=== PATIENT | male | born 1960 | race Caucasian/White ===

== ENCOUNTER 2019-03-27 12:45 | Emergency (ER) | payer MEDICARE, OTHER ==
[~2019-03-27] VITALS: Ht 177.8 cm; Wt 70.8 kg
[2019-03-27 14:01] LABS: Basophils % (auto) 0.7 % (0.0-2.0); Eosinophils # (auto) 0.3 uL; Lymphocytes # (auto) 0.9 uL; Mean Corpuscular Hgb Conc. 34.4 g/dL (32.0-36.0); Monocytes # (auto) 0.5 uL
[2019-03-27 14:03] LABS: Basophils # (auto) 0.1 uL; Eosinophils % (auto) 4.4 % (0.0-7.0); Hematocrit 33.7 % (41.0-53.0); Hemoglobin 11.6 g/dL (13.5-17.5); Lymphocytes % (auto) 12.3 % (10.0-50.0); Mean Corpuscular Hemoglobin 34.7 pg (28.0-32.0); Mean Corpuscular Volume 100.7 fL (80.0-100.0); Monocytes % (auto) 7.3 % (0.0-12.0); Neutrophils # (auto) 5.3 uL; Neutrophils % (auto) 75.3 % (37.0-80.0); Platelet Count (auto) 150 10^3/uL (140-450); Red Blood Cells 3.35 10^6/uL (4.5-5.90); Red Cell Distribution Width 13.7 % (11.8-14.3); White Blood Cell 7.1 10^3/uL (4.4-10.8)
[2019-03-27 14:12] LABS: Albumin 3.8 g/dL (3.4-5.0); Calcium 8.2 mg/dL (8.5-10.1); Potassium 4.2 mmol/L (3.5-5.1)
[2019-03-27 14:18] LABS: BUN/Creatinine Ratio 5.6; Bilirubin, Total 0.7 mg/dL (0.2-1.0); Total Protein 7.5 g/dL (6.4-8.2)
[2019-03-27 14:25] VITALS: BP 145/77
== END 2019-03-27 15:35 | disposition home or self-care (01) ==
LOC: ER 12:45
DX: R55 Syncope and collapse (principal); R53.1 Weakness; E11.22 Type 2 diabetes mellitus with diabetic chronic kidney disease; I13.0 Hypertensive heart and chronic kidney disease with heart failure and stage 1 through stage 4 chronic kidney disease, or unspecified chronic kidney disease; N18.9 Chronic kidney disease, unspecified; I50.89 Other heart failure; Z87.891 Personal history of nicotine dependence
CPT/HCPCS: 36415; 71045; 80053; 82962; 83880; 84484; 85025; 93005

== ENCOUNTER 2019-10-22 12:24 | Emergency (ER) | payer BC, OTHER ==
[~2019-10-22] VITALS: Ht 175.3 cm; Wt 79.4 kg
[2019-10-22 12:42] LABS: Basophils # (auto) 0.1 10 ^3/uL (0-0.2); Basophils % (auto) 1.4 % (0.0-2.0); Eosinophils # (auto) 0.1 10 ^3/uL (0-0.8); Eosinophils % (auto) 1.9 % (0.0-7.0); Hematocrit 40.6 % (41.0-53.0); Hemoglobin 13.6 g/dL (13.5-17.5); Lymphocytes # (auto) 1.3 10 ^3/uL (0.4-5.4); Lymphocytes % (auto) 16.6 % (10.0-50.0); Mean Corpuscular Hemoglobin 33.7 pg (28.0-32.0); Mean Corpuscular Hgb Conc. 33.5 g/dL (32.0-36.0); Mean Corpuscular Volume 100.4 fL (80.0-100.0); Monocytes # (auto) 0.6 10 ^3/uL (0-1.3); Monocytes % (auto) 7.9 % (0.0-12.0); Neutrophils # (auto) 5.6 10 ^3/uL (1.6-8.6); Neutrophils % (auto) 72.2 % (37.0-80.0); Platelet Count (auto) 166 10^3/uL (140-450); Red Blood Cells 4.05 10^6/uL (4.5-5.90); Red Cell Distribution Width 14.2 % (11.8-14.3); White Blood Cell 7.7 10^3/uL (4.4-10.8)
[2019-10-22 12:59] LABS: Albumin 3.8 g/dL (3.4-5.0); Anion Gap 14 (5-15); Blood Urea Nitrogen 39 mg/dL (7-18); Calcium 7.5 mg/dL (8.5-10.1); Carbon Dioxide 21 mmol/L (21-32); Chloride 100 mmol/L (98-107); Glucose 199 mg/dL (74-106); Magnesium 2.4 mg/dL (1.6-2.6); Potassium 3.7 mmol/L (3.5-5.1); Sodium 135 mmol/L (136-145)
[2019-10-22 13:05] LABS: Alanine Aminotransferase 18 U/L (16-61); Alkaline Phosphatase 68 U/L (45-117); Aspartate Aminotransferase 7 U/L (15-37); BUN/Creatinine Ratio 4.6; Bilirubin, Total 0.6 mg/dL (0.2-1.0); GFR African American 8 mL/min; GFR Non-African American 7 mL/min; Total Protein 7.7 g/dL (6.4-8.2)
[2019-10-22 14:47] VITALS: BP 105/63
== END 2019-10-22 15:15 | disposition home or self-care (01) ==
LOC: ER 12:24 → EDBD 12:24 → ER 15:15
DX: I47.1 Supraventricular tachycardia (principal); F17.210 Nicotine dependence, cigarettes, uncomplicated; R42 Dizziness and giddiness
CPT/HCPCS: 36415; 71045; 80053; 83735; 84484; 85025; 93005

== ENCOUNTER 2019-10-28 03:27 | Inpatient (IN) | payer OTHER ==
[~2019-10-28] VITALS: Ht 167.6 cm; Wt 81.9 kg
[2019-10-28] MEDS ORDERED: dilTIAZem 25 MG/5 ML VIAL IV ONE ×2 (03:45)
[2019-10-28] MEDS ORDERED: SODIUM CHLORIDE 0.9% 1,000 ML IV ONE (03:45)
[2019-10-28 04:06] LABS: Basophils # (auto) 0.2 10 ^3/uL (0-0.2); Basophils % (auto) 1.4 % (0.0-2.0); Eosinophils # (auto) 0.3 10 ^3/uL (0-0.8); Eosinophils % (auto) 3.1 % (0.0-7.0); Hematocrit 39.2 % (41.0-53.0); Hemoglobin 13.3 g/dL (13.5-17.5); Lymphocytes # (auto) 1.9 10 ^3/uL (0.4-5.4); Lymphocytes % (auto) 17.4 % (10.0-50.0); Mean Corpuscular Hemoglobin 33.8 pg (28.0-32.0); Mean Corpuscular Hgb Conc. 33.8 g/dL (32.0-36.0); Monocytes # (auto) 0.8 10 ^3/uL (0-1.3); Monocytes % (auto) 7.7 % (0.0-12.0); Neutrophils # (auto) 7.7 10 ^3/uL (1.6-8.6); Neutrophils % (auto) 70.4 % (37.0-80.0); Platelet Count (auto) 185 10^3/uL (140-450); Red Blood Cells 3.92 10^6/uL (4.5-5.90); Red Cell Distribution Width 13.6 % (11.8-14.3); White Blood Cell 10.9 10^3/uL (4.4-10.8)
[2019-10-28 04:25] LABS: INR 0.97 (0.9-1.15)
[2019-10-28 04:28] LABS: Albumin 3.7 g/dL (3.4-5.0); Calcium 7.1 mg/dL (8.5-10.1); Magnesium 2.7 mg/dL (1.6-2.6); Potassium 3.8 mmol/L (3.5-5.1)
[2019-10-28] MEDS ORDERED: THIAMINE 100mg/ml INJ (200mg/2ml VIAL) IV ONE (04:30)
[2019-10-28 04:36] LABS: BUN/Creatinine Ratio 5.5; Bilirubin, Total 0.4 mg/dL (0.2-1.0); Total Protein 7.4 g/dL (6.4-8.2)
[2019-10-28] MEDS ORDERED: HYDROcodone-ACET 10/325MG TAB PO ONE (06:00)
[2019-10-28] MEDS ORDERED: FURO40TA4 PO (08:16)
[2019-10-28] MEDS ORDERED: SEVE800T8 PO (08:16)
[2019-10-28] MEDS ORDERED: HYDR-4833 PO (08:18)
[2019-10-28] MEDS ORDERED: LEVO125T7 PO (08:22)
[2019-10-28] MEDS ORDERED: CARV25TA55 PO (08:22)
[2019-10-28] MEDS ORDERED: ALLO300T2 PO (08:22)
[2019-10-28] MEDS ORDERED: ASPI81CH43 PO (08:23)
[2019-10-28] MEDS ORDERED: NITROGLYCERIN 0.4 MG SL TAB SL PRN (10:15)
[2019-10-28] MEDS ORDERED: ONDANSETRON HCL 4 MG/2 ML VIAL IV PRN (10:15)
[2019-10-28] MEDS ORDERED: MORPHINE SULF INJ 2 MG/ML SYRINGE 1ML IV PRN (10:15)
[2019-10-28] MEDS ORDERED: METOPROLOL TARTRATE 1MG/1ML-5ML VIAL IV PRN (10:15)
[2019-10-28 10:52] LABS: Basophils # (auto) 0.1 10 ^3/uL (0-0.2); Basophils % (auto) 0.8 % (0.0-2.0); Eosinophils # (auto) 0.2 10 ^3/uL (0-0.8); Eosinophils % (auto) 2.3 % (0.0-7.0); Hematocrit 33.2 % (41.0-53.0); Hemoglobin 11.1 g/dL (13.5-17.5); Lymphocytes # (auto) 1.3 10 ^3/uL (0.4-5.4); Mean Corpuscular Hemoglobin 33.9 pg (28.0-32.0); Mean Corpuscular Hgb Conc. 33.6 g/dL (32.0-36.0); Mean Corpuscular Volume 100.9 fL (80.0-100.0); Monocytes # (auto) 0.8 10 ^3/uL (0-1.3); Neutrophils # (auto) 6.9 10 ^3/uL (1.6-8.6); Neutrophils % (auto) 73.9 % (37.0-80.0); Platelet Count (auto) 165 10^3/uL (140-450); Red Blood Cells 3.29 10^6/uL (4.5-5.90); Red Cell Distribution Width 13.8 % (11.8-14.3); White Blood Cell 9.3 10^3/uL (4.4-10.8)
[2019-10-28 11:00] LABS: Potassium 3.9 mmol/L (3.5-5.1)
[2019-10-28 11:07] LABS: Albumin 3.8 g/dL (3.4-5.0); BUN/Creatinine Ratio 5.3; Bilirubin, Total 0.4 mg/dL (0.2-1.0); Calcium 7.3 mg/dL (8.5-10.1)
[2019-10-28] MEDS ORDERED: CYAN500T25 PO (11:51)
[2019-10-28] MEDS ORDERED: HYDR-4072 PO (11:51)
[2019-10-28] MEDS ORDERED: B-CO-5 PO (12:05)
[2019-10-28] MEDS ORDERED: SODIUM CHL 0.9% 1000 ML BAG XX ONE (12:45)
[2019-10-28 13:55] VITALS: BP 124/67
--- NOTE | 2019-10-28 14:00 | NUR ---
Telemetry admit from MAKAYLA JAIN admitted to Telemetry unit after SBAR received. Patient oriented to Rosa Collins, primary RN, unit, room, bed, and unit policies regarding patient care. Patient now on continuous telemetry monitoring, tele box # 77 and telemetry reading on arrival to unit is SINUS RHYTHM IN THE 60'S. Patient placed on bedside oxygen, weighed by bedscale and encouraged to call if they need something. Updated on POC and instructed to call for assistance as needed, patient verbalized understanding. Bed locked in lowest position, side rails up x2, call light within reach. Will continue to monitor q1hr and PRN.
[2019-10-28 17:00] VITALS: BP 131/75
[2019-10-28] MEDS ORDERED: SEVELAMER 800 MG TAB PO SCH (18:00)
--- NOTE | 2019-10-28 20:30 | NUR ---
Jose Lee RN notified me of MD Day wanted to resume ALL home medications. Will verify with MD Day.
--- NOTE | 2019-10-28 20:50 | NUR ---
Communicated to MD Day of ALL home medications that the patient is taking, and if he (MD Day) wanted to resume all home medications as described to me by Day RN Rosa. MD Day provided new order: Resume all home medications for patient Declan Sloan. Read back and confirmed with MD Day. Will carry out.
[2019-10-28] MEDS ORDERED: HYDROcodone-ACET 10/325MG TAB PO PRN (21:00)
[2019-10-28] MEDS: CARVEDILOL 12.5 MG TAB PO SCH (21:59)
[2019-10-28 22:00] VITALS: BP 121/65
[2019-10-28] MEDS ORDERED: CARVEDILOL 12.5 MG TAB PO SCH (22:00)
[2019-10-29 05:01] VITALS: BP 109/62
[2019-10-29] MEDS ORDERED: FUROSEMIDE 40 MG TAB PO SCH (06:00)
--- NOTE | 2019-10-29 06:12 | NUR ---
Communicated to MD Day, of patient heart rate dropped down to 39 then back up, pt asymptomatic.
[2019-10-29] MEDS ORDERED: LEVOTHYROXINE SODIUM 25 MCG TAB PO SCH (07:00)
[2019-10-29] MEDS ORDERED: LEVOTHYROXINE SODIUM 100 MCG TAB PO SCH (07:00)
[2019-10-29 07:03] LABS: Basophils # (auto) 0.1 10 ^3/uL (0-0.2); Eosinophils # (auto) 0.4 10 ^3/uL (0-0.8); Hemoglobin 10.9 g/dL (13.5-17.5); Lymphocytes # (auto) 1.4 10 ^3/uL (0.4-5.4); Monocytes # (auto) 0.7 10 ^3/uL (0-1.3); Neutrophils # (auto) 5.5 10 ^3/uL (1.6-8.6); Platelet Count (auto) 143 10^3/uL (140-450)
[2019-10-29 07:05] LABS: Basophils % (auto) 1.1 % (0.0-2.0); Eosinophils % (auto) 5.4 % (0.0-7.0); Hematocrit 32.1 % (41.0-53.0); Lymphocytes % (auto) 16.9 % (10.0-50.0); Mean Corpuscular Hemoglobin 34.4 pg (28.0-32.0); Mean Corpuscular Volume 101.4 fL (80.0-100.0); Monocytes % (auto) 8.5 % (0.0-12.0); Neutrophils % (auto) 68.1 % (37.0-80.0); Red Blood Cells 3.17 10^6/uL (4.5-5.90); Red Cell Distribution Width 14.3 % (11.8-14.3); White Blood Cell 8.1 10^3/uL (4.4-10.8)
[2019-10-29 07:21] LABS: BUN/Creatinine Ratio 6.5; Calcium 7.1 mg/dL (8.5-10.1); Phosphorus 7.7 mg/dL (2.5-4.90); Potassium 4.6 mmol/L (3.5-5.1)
[2019-10-29 08:00] VITALS: BP 123/63
[2019-10-29] MEDS ORDERED: SEVELAMER 800 MG TAB PO SCH ×2 (08:00→12:00)
[2019-10-29] MEDS ORDERED: ALLOPURINOL 100 MG TAB PO SCH (10:00)
[2019-10-29] MEDS ORDERED: B-COMPLEX W/ C & FOLIC ACID(NEPHROVITE TAB) PO SCH (10:00)
[2019-10-29] MEDS ORDERED: ASPirin 81 mg TAB PO SCH (10:00)
[2019-10-29] MEDS ORDERED: CYANOCOBALAMIN 500 MCG TAB PO SCH (10:00)
[2019-10-29] MEDS: CARVEDILOL 12.5 MG TAB PO SCH (10:26)
[2019-10-29 12:00] VITALS: BP 105/66
--- NOTE | 2019-10-29 13:00 | NUR ---
Cardiology Cleared The patient was seen by Dr. Loredo this afternoon and he said he was cleared to be discharged. Will notify Dr. Day.
[2019-10-29 15:43] VITALS: BP 105/66
[2019-10-29 16:59] VITALS: BP 127/71
--- NOTE | 2019-10-29 17:05 | NUR ---
Patient Discharged Received an order to discharge the patient. Prepared the patient for discharge, reviewed all the paperwork with him, asked for any questions, the patient stated he understood everything. Confirmed his follow up appointments. Removed the IV and Telemetry box, patient signed discharged instructions. Escorted the patient out via wheel chair at 1700hrs.
== END 2019-10-29 17:00 | disposition home or self-care (01) | DRG 308 ==
LOC: EDBD 03:27 → ER 03:31 → TELE 03:32 → TELE-WESTW 13:54
PROVIDERS: ADMIT Internal Medicine; ATTEND Internal Medicine
PROC: 5A1D70Z Performance of Urinary Filtration, Intermittent, Less than 6 Hours Per Day (ICD-10-PCS; principal; 2019-10-29)
DX: I47.1 Supraventricular tachycardia (principal); N18.6 End stage renal disease; I13.2 Hypertensive heart and chronic kidney disease with heart failure and with stage 5 chronic kidney disease, or end stage renal disease; I50.22 Chronic systolic (congestive) heart failure; E83.39 Other disorders of phosphorus metabolism; F41.9 Anxiety disorder, unspecified; E11.22 Type 2 diabetes mellitus with diabetic chronic kidney disease; Z83.3 Family history of diabetes mellitus; Z99.2 Dependence on renal dialysis; Z87.891 Personal history of nicotine dependence; Z98.52 Vasectomy status
CPT/HCPCS: 36415; 71045; 80048; 80053; 83735; 83880; 84100; 84484; 85025; 85610; 85730; 87081; 90935; 93005; 96361; 96374; 96375; 96376; G0378

== ENCOUNTER 2020-12-06 10:17 | Inpatient (IN) | payer OTHER ==
[~2020-12-06] VITALS: Ht 170.2 cm; Wt 83.2 kg
[~2020-12-06 10:17] MED LIST: ALLO300T2 PO; ASPI81CH43 PO; B-CO-5 PO; CARV25TA55 PO; CYAN500T25 PO; FURO40TA4 PO; HYDR-4072 PO; LEVO125T7 PO; SEVE800T8 PO
[2020-12-06] MEDS ORDERED: SODIUM CHLORIDE 0.9% 1,000 ML IV ONE (11:00)
[2020-12-06] MEDS ORDERED: ASPirin 81 mg TAB PO ONE (11:00)
[2020-12-06 11:48] LABS: Basophils # (auto) 0.1 10 ^3/uL (0-0.2); Eosinophils # (auto) 0.1 10 ^3/uL (0-0.8); Lymphocytes # (auto) 1.3 10 ^3/uL (0.4-5.4); Monocytes # (auto) 0.6 10 ^3/uL (0-1.3); Neutrophils # (auto) 6.6 10 ^3/uL (1.6-8.6); Red Cell Distribution Width 14.1 % (11.8-14.3)
[2020-12-06 11:51] LABS: Basophils % (auto) 0.6 % (0.0-2.0); Eosinophils % (auto) 1.3 % (0.0-7.0); Hematocrit 38.1 % (41.0-53.0); Hemoglobin 12.9 g/dL (13.5-17.5); Lymphocytes % (auto) 14.7 % (10.0-50.0); Mean Corpuscular Hemoglobin 33.7 pg (28.0-32.0); Mean Corpuscular Hgb Conc. 33.8 g/dL (32.0-36.0); Mean Corpuscular Volume 99.6 fL (80.0-100.0); Monocytes % (auto) 6.5 % (0.0-12.0); Neutrophils % (auto) 76.9 % (37.0-80.0); Red Blood Cells 3.83 10^6/uL (4.5-5.90); White Blood Cell 8.5 10^3/uL (4.4-10.8)
[2020-12-06 12:10] LABS: INR 1.01 (0.9-1.15); Partial Thromboplastin Time 37.3 sec (23.6-33.0)
[2020-12-06 12:46] LABS: Albumin 3.4 g/dL (3.4-5.0); Anion Gap 14 (5-15); Blood Urea Nitrogen 35 mg/dL (7-18); Calcium 7.7 mg/dL (8.5-10.1); Carbon Dioxide 20 mmol/L (21-32); Chloride 101 mmol/L (98-107); Glucose 248 mg/dL (74-106); Potassium 3.8 mmol/L (3.5-5.1); Sodium 135 mmol/L (136-145)
[2020-12-06 12:52] LABS: Alanine Aminotransferase 19 U/L (16-61); Alkaline Phosphatase 147 U/L (45-117); Aspartate Aminotransferase 8 U/L (15-37); BUN/Creatinine Ratio 3.6; Bilirubin, Total 0.6 mg/dL (0.2-1.0); GFR African American 7 mL/min; GFR Non-African American 6 mL/min; Total Protein 7.1 g/dL (6.4-8.2)
[2020-12-06] MEDS ORDERED: ENOXAPARIN SOD 80 MG/0.8ML SYRINGE SC ONE (17:30)
[2020-12-06] MEDS ORDERED: ONDANSETRON HCL 4 MG/2 ML VIAL IV PRN (18:45)
[2020-12-06] MEDS ORDERED: MORPHINE SULFATE INJECTION 2 MG/ML SYRG IV PRN ×2 (18:45)
[2020-12-06] MEDS ORDERED: ACETAMINOPHEN 500 MG TAB PO PRN (18:45)
[2020-12-06] MEDS ORDERED: NITROGLYCERIN 0.4 MG SL TAB SL PRN (18:45)
[2020-12-06] MEDS ORDERED: hydrALAZINE HCL 20 MG/ML VL IV PRN (18:45)
[2020-12-06] MEDS ORDERED: HYDROcodone-ACET 5/325MG TAB PO PRN (18:45)
[2020-12-06 21:00] VITALS: BP 119/66
[2020-12-06 22:00] VITALS: BP 119/66
[2020-12-06] MEDS ORDERED: ATORVASTATIN 20 MG TAB PO SCH (22:00)
[2020-12-06] MEDS: SEVELAMER 800 MG TAB PO SCH (22:03)
[2020-12-06] MEDS: CARVEDILOL 12.5 MG TAB PO SCH (22:04)
[2020-12-07 05:00] VITALS: BP_SYST 105; BP_SYST 106; BP_SYST 111; BP_DIAS 63; BP_DIAS 68; BP_DIAS 73
[2020-12-07 06:39] LABS: Urine Bacteria NONE SEEN /hpf (None Seen); Urine Blood 1+ /uL (Negative); Urine Specific Gravity 1.017 (1.001-1.035); Urine WBC 66 /hpf (0 - 3)
[2020-12-07] MEDS ORDERED: LEVOTHYROXINE SODIUM 50 MCG TAB PO SCH (07:00)
[2020-12-07 07:25] LABS: Basophils # (auto) 0.1 10 ^3/uL (0-0.2); Eosinophils # (auto) 0.2 10 ^3/uL (0-0.8); Mean Corpuscular Volume 100.3 fL (80.0-100.0); Nucleated Red Blood Cells % 0.1 %
[2020-12-07 07:27] LABS: Basophils % (auto) 1.3 % (0.0-2.0); Eosinophils % (auto) 2.9 % (0.0-7.0); Hematocrit 35.1 % (41.0-53.0); Hemoglobin 11.9 g/dL (13.5-17.5); Lymphocytes # (auto) 1.6 10 ^3/uL (0.4-5.4); Lymphocytes % (auto) 24.7 % (10.0-50.0); Mean Corpuscular Hemoglobin 33.9 pg (28.0-32.0); Mean Corpuscular Hgb Conc. 33.8 g/dL (32.0-36.0); Monocytes # (auto) 0.5 10 ^3/uL (0-1.3); Monocytes % (auto) 8.3 % (0.0-12.0); Neutrophils # (auto) 4.1 10 ^3/uL (1.6-8.6); Neutrophils % (auto) 62.8 % (37.0-80.0); Red Blood Cells 3.51 10^6/uL (4.5-5.90); Red Cell Distribution Width 14.1 % (11.8-14.3); White Blood Cell 6.5 10^3/uL (4.4-10.8)
[2020-12-07 07:42] LABS: Albumin 3.2 g/dL (3.4-5.0); Calcium 7.9 mg/dL (8.5-10.1); Potassium 4.3 mmol/L (3.5-5.1)
[2020-12-07 07:46] LABS: BUN/Creatinine Ratio 4.3; Bilirubin, Total 0.4 mg/dL (0.2-1.0); Total Protein 6.6 g/dL (6.4-8.2)
[2020-12-07] MEDS: SEVELAMER 800 MG TAB PO SCH ×3 (08:20→17:58)
[2020-12-07 09:00] VITALS: BP_SYST 111; BP_SYST 184; BP_DIAS 64; BP_DIAS 97
[2020-12-07] MEDS: CARVEDILOL 12.5 MG TAB PO SCH (09:33)
[2020-12-07] MEDS ORDERED: ASPirin-EC 81 mg tab PO SCH (10:00)
[2020-12-07] MEDS ORDERED: cefTRIAXone 1GM/50ML D5W 50 ML IV ONE (10:30)
[2020-12-07 13:00] VITALS: BP 119/79
[2020-12-07 17:00] VITALS: BP 118/75
[2020-12-08] MEDS ORDERED: cefTRIAXone 1GM/50ML D5W 50 ML IV SCH (09:00)
== END 2020-12-07 19:30 | disposition home or self-care (01) | DRG 280 ==
LOC: ER 10:17 → EDSEX 10:17 → EDBD 10:17 → TELE-CENTR 18:33 → ER 20:48
PROVIDERS: ADMIT Nurse Practitioner Acute Care; ATTEND Internal Medicine Geriatric Medicine
PROC: 5A1D70Z Performance of Urinary Filtration, Intermittent, Less than 6 Hours Per Day (ICD-10-PCS; principal; 2020-12-07)
DX: I21.4 Non-ST elevation (NSTEMI) myocardial infarction (principal); N18.6 End stage renal disease; I47.1 Supraventricular tachycardia; I50.22 Chronic systolic (congestive) heart failure; I13.2 Hypertensive heart and chronic kidney disease with heart failure and with stage 5 chronic kidney disease, or end stage renal disease; N39.0 Urinary tract infection, site not specified; Z20.822 Contact with and (suspected) exposure to COVID-19; R55 Syncope and collapse; F41.9 Anxiety disorder, unspecified; E03.9 Hypothyroidism, unspecified; D63.1 Anemia in chronic kidney disease; E11.22 Type 2 diabetes mellitus with diabetic chronic kidney disease; E11.649 Type 2 diabetes mellitus with hypoglycemia without coma; Z79.82 Long term (current) use of aspirin; Z79.899 Other long term (current) drug therapy; Z83.3 Family history of diabetes mellitus; Z87.891 Personal history of nicotine dependence; Z99.2 Dependence on renal dialysis
CPT/HCPCS: 36415; 71045; 80053; 81001; 83880; 84443; 84484; 85025; 85610; 85730; 86141; 87426; 90935; 93005; 93306; 96360; 96372; 99291; G0378; J0696

== ENCOUNTER 2022-03-25 12:24 | Emergency (ER) | payer OTHER ==
[~2022-03-25] VITALS: Ht 167.6 cm; Wt 72.7 kg
[2022-03-25 13:22] LABS: Basophils # (auto) 0.1 10 ^3/uL (0-0.2); Eosinophils # (auto) 0.1 10 ^3/uL (0-0.8); Eosinophils % (auto) 0.9 % (0.0-7.0); Hemoglobin 10.3 g/dL (13.5-17.5); Lymphocytes # (auto) 0.7 10 ^3/uL (0.4-5.4); Lymphocytes % (auto) 8.5 % (10.0-50.0); Mean Corpuscular Hemoglobin 32.2 pg (28.0-32.0); Mean Corpuscular Hgb Conc. 33.4 g/dL (32.0-36.0); Mean Corpuscular Volume 96.6 fL (80.0-100.0); Monocytes # (auto) 0.8 10 ^3/uL (0-1.3); Monocytes % (auto) 9.5 % (0.0-12.0); Neutrophils # (auto) 6.8 10 ^3/uL (1.6-8.6); Neutrophils % (auto) 80.1 % (37.0-80.0); Nucleated Red Blood Cells % 0.1 %; Red Blood Cells 3.21 10^6/uL (4.5-5.90); Red Cell Distribution Width 15.5 % (11.8-14.3); White Blood Cell 8.5 10^3/uL (4.4-10.8)
[2022-03-25 13:36] LABS: Albumin 3.5 g/dL (3.4-5.0); Calcium 9.8 mg/dL (8.5-10.1); Potassium 4.1 mmol/L (3.5-5.1)
[2022-03-25 13:38] LABS: BUN/Creatinine Ratio 3.5
[2022-03-25 13:40] LABS: Bilirubin, Total 0.7 mg/dL (0.2-1.0); Total Protein 7.2 g/dL (6.4-8.2)
[2022-03-25] MEDS ORDERED: PIPERACILLIN-TAZOB 2.25GM 50 ML IV ONE (17:30)
[2022-03-25] MEDS ORDERED: VANCOMYCIN 1GM/250ML 250 ML IV ONE (17:30)
[2022-03-25] MEDS ORDERED: CEFEPIME 1GM/ 50ML 50 ML IV ONE (18:45)
[2022-03-25] MEDS ORDERED: HYDROcodone-ACET 10/325MG TAB PO ONE (19:15)
[2022-03-25] MEDS ORDERED: CLINDAMYCIN 900MG IV 50 ML IV ONE (20:15)
[2022-03-25] MEDS ORDERED: LIDOCAINE 1% HCL (LOCAL ANESTH.) INJ 20ML MDV IJ ONE (22:30)
[2022-03-26 00:42] VITALS: BP 156/83
[2022-03-26] MEDS ORDERED: MORPHINE SULFATE 4 MG/ML SYR/VIAL IV ONE (00:45)
[2022-03-26] MEDS ORDERED: ONDANSETRON HCL 4 MG/2 ML VIAL IV ONE (01:00)
== END 2022-03-26 00:55 | disposition short-term general hospital (02) ==
LOC: ER 12:24 → EDBD 12:24 → ER 03-26 00:55
DX: R22.9 Localized swelling, mass and lump, unspecified (principal); N45.1 Epididymitis; B99.9 Unspecified infectious disease; I13.2 Hypertensive heart and chronic kidney disease with heart failure and with stage 5 chronic kidney disease, or end stage renal disease; N18.6 End stage renal disease; Z79.899 Other long term (current) drug therapy; I50.89 Other heart failure; Z98.890 Other specified postprocedural states; Z87.891 Personal history of nicotine dependence; Z20.822 Contact with and (suspected) exposure to COVID-19
CPT/HCPCS: 36415; 74176; 76870; 80053; 83605; 85025; 87040; 87205; 87426; 96365; 96366; 96367; 96368; 96375; 99285; J0692; J2001; J2270; J2405; J2543; J3370; J3490

== ENCOUNTER → 2022-07-10 | Outpatient (CLI) | payer OTHER ==
[2022-07-10 07:22] LABS: Basophils # (auto) 0.1 10 ^3/uL (0-0.2); Basophils % (auto) 1.2 % (0.0-2.0); Eosinophils # (auto) 0.2 10 ^3/uL (0-0.8); Eosinophils % (auto) 3.4 % (0.0-7.0); Hematocrit 34.6 % (41.0-53.0); Hemoglobin 11.5 g/dL (13.5-17.5); Lymphocytes % (auto) 17.9 % (10.0-50.0); Mean Corpuscular Hemoglobin 31.7 pg (28.0-32.0); Mean Corpuscular Hgb Conc. 33.3 g/dL (32.0-36.0); Mean Corpuscular Volume 95.1 fL (80.0-100.0); Monocytes # (auto) 0.6 10 ^3/uL (0-1.3); Monocytes % (auto) 10.8 % (0.0-12.0); Neutrophils # (auto) 3.8 10 ^3/uL (1.6-8.6); Neutrophils % (auto) 66.7 % (37.0-80.0); Red Blood Cells 3.63 10^6/uL (4.5-5.90); Red Cell Distribution Width 17.1 % (11.8-14.3); White Blood Cell 5.7 10^3/uL (4.4-10.8)
[2022-07-10 07:59] LABS: Calcium 9.6 mg/dL (8.5-10.1); Potassium 4.5 mmol/L (3.5-5.1); Uric Acid 3.7 mg/dL (3.5-7.2)
[2022-07-10 08:04] LABS: BUN/Creatinine Ratio 4.5 (10.0-20.0); Bilirubin, Total 0.8 mg/dL (0.2-1.0); Total Protein 7.4 g/dL (6.4-8.2)
[2022-07-11 08:07] LABS: Urine Bacteria NONE SEEN /hpf (None Seen); Urine Blood Negative /uL (Negative); Urine Hyaline Cast FEW /lpf (0 - 2); Urine Mucus FEW (None Seen); Urine Specific Gravity 1.017 (1.001-1.035); Urine Sperm PRESENT /hpf (None Seen); Urine WBC 85 /hpf (0 - 3)
== END | disposition home or self-care (01) ==
LOC: LAB 06:56
PROVIDERS: ATTEND Internal Medicine
DX: R79.89 Other specified abnormal findings of blood chemistry (principal); R68.89 Other general symptoms and signs; E78.41 Elevated Lipoprotein(a); R73.09 Other abnormal glucose; R82.90 Unspecified abnormal findings in urine; D51.9 Vitamin B12 deficiency anemia, unspecified; R82.79 Other abnormal findings on microbiological examination of urine; E55.9 Vitamin D deficiency, unspecified; R82.991 Hypocitraturia; R94.6 Abnormal results of thyroid function studies; E61.2 Magnesium deficiency
CPT/HCPCS: 36415; 80053; 80061; 81001; 82306; 82607; 83036; 84443; 84550; 85025; 87086

== ENCOUNTER → 2022-10-10 | Outpatient (CLI) | payer OTHER ==
[2022-10-10 07:15] LABS: Basophils # (auto) 0.1 10 ^3/uL (0-0.2); Eosinophils # (auto) 0.2 10 ^3/uL (0-0.8); Eosinophils % (auto) 3.2 % (0.0-7.0); Hematocrit 32.9 % (41.0-53.0); Hemoglobin 10.8 g/dL (13.5-17.5); Lymphocytes % (auto) 15.8 % (10.0-50.0); Mean Corpuscular Hemoglobin 31.6 pg (28.0-32.0); Mean Corpuscular Hgb Conc. 32.7 g/dL (32.0-36.0); Mean Corpuscular Volume 96.4 fL (80.0-100.0); Monocytes # (auto) 0.6 10 ^3/uL (0-1.3); Monocytes % (auto) 10.3 % (0.0-12.0); Neutrophils # (auto) 4.3 10 ^3/uL (1.6-8.6); Neutrophils % (auto) 69.7 % (37.0-80.0); Red Blood Cells 3.41 10^6/uL (4.5-5.90); Red Cell Distribution Width 18.8 % (11.8-14.3); White Blood Cell 6.2 10^3/uL (4.4-10.8)
[2022-10-10 07:40] LABS: Urine Bacteria NONE SEEN /hpf (None Seen); Urine Blood TRACE /uL (Negative); Urine Specific Gravity 1.019 (1.001-1.035); Urine Sperm PRESENT /hpf (None Seen); Urine WBC 113 /hpf (0 - 3)
[2022-10-10 07:47] LABS: Albumin 3.7 g/dL (3.4-5.0); Calcium 9.3 mg/dL (8.5-10.1); Magnesium 2.4 mg/dL (1.6-2.6)
[2022-10-10 07:53] LABS: BUN/Creatinine Ratio 4.2 (10.0-20.0); Bilirubin, Total 1.1 mg/dL (0.2-1.0); Total Protein 7.3 g/dL (6.4-8.2); Uric Acid 3.4 mg/dL (3.5-7.2)
[2022-10-10 09:31] LABS: Folate (Folic Acid) > 24.00 ng/mL (5.38-24)
== END | disposition home or self-care (01) ==
LOC: LAB 06:43
PROVIDERS: ATTEND Internal Medicine
DX: R68.89 Other general symptoms and signs (principal); R73.09 Other abnormal glucose; E79.0 Hyperuricemia without signs of inflammatory arthritis and tophaceous disease; R94.6 Abnormal results of thyroid function studies; E61.2 Magnesium deficiency; D51.9 Vitamin B12 deficiency anemia, unspecified; E55.9 Vitamin D deficiency, unspecified
CPT/HCPCS: 36415; 80053; 80061; 81001; 82306; 82607; 82746; 83036; 83735; 84153; 84403; 84443; 84550; 85025; 87086

== ENCOUNTER → 2022-11-13 | Outpatient (CLI) | payer OTHER ==
[2022-11-13 08:56] LABS: Free T4 (Free Thyroxine) 0.93 ng/dL (0.89-1.76)
[2022-11-13 08:57] LABS: T3 Total 0.66 ng/mL (0.60-1.81)
[2022-11-14 08:06] LABS: Thyroxine (T4) 7.5 ug/dL (4.5-12.0)
== END | disposition home or self-care (01) ==
LOC: LAB 07:09
PROVIDERS: ATTEND Internal Medicine
DX: R94.6 Abnormal results of thyroid function studies (principal)
CPT/HCPCS: 36415; 83970; 84436; 84439; 84443; 84480

== ENCOUNTER 2022-12-28 21:01 | Emergency (ER) | payer OTHER ==
[~2022-12-28] VITALS: Ht 170.2 cm; Wt 79.4 kg
[2022-12-28 23:23] VITALS: BP 152/93; PULSE 70; RESP 16; TEMP 98; O2SAT 98
== END 2022-12-28 23:27 | disposition home or self-care (01) ==
LOC: ER 21:01 → EDBD 21:01 → ER 23:27
DX: T82.838A Hemorrhage due to vascular prosthetic devices, implants and grafts, initial encounter (principal); S51.831A Puncture wound without foreign body of right forearm, initial encounter; I13.2 Hypertensive heart and chronic kidney disease with heart failure and with stage 5 chronic kidney disease, or end stage renal disease; N18.6 End stage renal disease; I50.89 Other heart failure; Z79.899 Other long term (current) drug therapy; Z79.82 Long term (current) use of aspirin; Z99.2 Dependence on renal dialysis; X58.XXXA Exposure to other specified factors, initial encounter; Y93.89 Activity, other specified; Y92.89 Other specified places as the place of occurrence of the external cause; Y99.8 Other external cause status
CPT/HCPCS: 12001

== ENCOUNTER → 2023-01-03 | Outpatient (CLI) | payer OTHER ==
[2023-01-03 09:03] LABS: Free T4 (Free Thyroxine) 0.94 ng/dL (0.89-1.76); T3 Total 0.65 ng/mL (0.60-1.81)
[2023-01-04 08:06] LABS: Thyroxine (T4) 8.3 ug/dL (4.5-12.0)
== END | disposition home or self-care (01) ==
LOC: LAB 07:55
PROVIDERS: ATTEND Internal Medicine
DX: R94.6 Abnormal results of thyroid function studies (principal)
CPT/HCPCS: 36415; 83970; 84436; 84439; 84443; 84480

== ENCOUNTER → 2023-04-16 | Outpatient (CLI) | payer OTHER ==
[2023-04-16 10:12] LABS: Basophils # (auto) 0 10 ^3/uL (0-0.2); Basophils % (auto) 0.7 % (0.0-2.0); Eosinophils # (auto) 0.2 10 ^3/uL (0-0.8); Eosinophils % (auto) 3.6 % (0.0-7.0); Hematocrit 35.4 % (41.0-53.0); Hemoglobin 11.6 g/dL (13.5-17.5); Lymphocytes % (auto) 18.4 % (10.0-50.0); Mean Corpuscular Hemoglobin 33.1 pg (28.0-32.0); Mean Corpuscular Hgb Conc. 32.8 g/dL (32.0-36.0); Mean Corpuscular Volume 100.9 fL (80.0-100.0); Monocytes # (auto) 0.6 10 ^3/uL (0-1.3); Monocytes % (auto) 10.5 % (0.0-12.0); Neutrophils # (auto) 3.7 10 ^3/uL (1.6-8.6); Neutrophils % (auto) 66.8 % (37.0-80.0); Nucleated Red Blood Cells % 0.1 %; Red Blood Cells 3.51 10^6/uL (4.5-5.90); Red Cell Distribution Width 16.1 % (11.8-14.3); White Blood Cell 5.5 10^3/uL (4.4-10.8)
[2023-04-16 10:27] LABS: Albumin 4.4 g/dL (3.2-4.8); Alkaline Phosphatase 115 U/L (46-116); Anion Gap 8 (5-15); Aspartate Aminotransferase 9 U/L (13-40); BUN/Creatinine Ratio 4.9 (10.0-20.0); Blood Urea Nitrogen 36 mg/dL (9-23); Calcium 10.3 mg/dL (8.5-10.1); Carbon Dioxide 29 mmol/L (20-30); Chloride 102 mmol/L (98-107); Cholesterol 111 mg/dL (< 200); Glucose 133 mg/dL (74-106); HDL Cholesterol 40 mg/dL (40-59); LDL Cholesterol 62 mg/dL (< 100); Potassium 4.9 mmol/L (3.5-5.1); Sodium 139 mmol/L (136-145); Triglycerides 68 mg/dL (< 150)
[2023-04-16 10:28] LABS: Bilirubin, Total 0.7 mg/dL (0.2-1.0); Total Protein 7.2 g/dL (5.7-8.2)
[2023-04-16 10:42] LABS: Urine Bacteria NONE SEEN /hpf (None Seen); Urine Blood 1+ /uL (Negative); Urine Clarity HAZY (Clear); Urine Color Yellow (Yellow); Urine Protein, UAD 3+ (Negative); Urine Specific Gravity 1.019 (1.001-1.035); Urine Sperm PRESENT /hpf (None Seen); Urine Urobilinogen Normal (Negative); Urine WBC 365 /hpf (0 - 3); Urine pH 6.5 (5.0-8.0)
[2023-04-16 11:43] LABS: Folate (Folic Acid) > 24.00 ng/mL (>5.38)
[2023-04-16 12:02] LABS: Alanine Aminotransferase 12 U/L (7-40); Magnesium 2.1 mg/dL (1.6-2.6)
== END | disposition home or self-care (01) ==
LOC: LAB 09:35
PROVIDERS: ATTEND Internal Medicine
DX: E61.2 Magnesium deficiency (principal); R78.89 Finding of other specified substances, not normally found in blood; E78.9 Disorder of lipoprotein metabolism, unspecified; R68.89 Other general symptoms and signs; R73.09 Other abnormal glucose; D51.9 Vitamin B12 deficiency anemia, unspecified; E85.9 Amyloidosis, unspecified; E79.0 Hyperuricemia without signs of inflammatory arthritis and tophaceous disease
CPT/HCPCS: 36415; 80053; 80061; 81001; 82306; 82607; 82746; 83036; 83735; 84443; 84550; 85025; 87086; 87088; 87186

== ENCOUNTER → 2023-05-23 | Outpatient (CLI) | payer OTHER ==
[~2023-05-23] MED LIST changes: +CEPH500C PO
[2023-05-23 07:22] LABS: Basophils # (auto) 0.1 10 ^3/uL (0-0.2); Basophils % (auto) 1.4 % (0.0-2.0); Eosinophils # (auto) 0.3 10 ^3/uL (0-0.8); Eosinophils % (auto) 4.5 % (0.0-7.0); Hemoglobin 10.4 g/dL (13.5-17.5); Lymphocytes # (auto) 1.5 10 ^3/uL (0.4-5.4); Lymphocytes % (auto) 19.5 % (10.0-50.0); Mean Corpuscular Hemoglobin 32.5 pg (28.0-32.0); Mean Corpuscular Hgb Conc. 32.5 g/dL (32.0-36.0); Mean Corpuscular Volume 99.8 fL (80.0-100.0); Monocytes # (auto) 0.9 10 ^3/uL (0-1.3); Monocytes % (auto) 12.1 % (0.0-12.0); Neutrophils # (auto) 4.8 10 ^3/uL (1.6-8.6); Neutrophils % (auto) 62.5 % (37.0-80.0); Nucleated Red Blood Cells % 0.1 %; Red Blood Cells 3.21 10^6/uL (4.5-5.90); Red Cell Distribution Width 15.3 % (11.8-14.3); White Blood Cell 7.7 10^3/uL (4.4-10.8)
[2023-05-23 07:32] LABS: Urine Bacteria NONE SEEN /hpf (None Seen); Urine Blood Negative /uL (Negative); Urine Clarity HAZY (Clear); Urine Color Yellow (Yellow); Urine Protein, UAD 3+ (Negative); Urine Specific Gravity 1.015 (1.001-1.035); Urine WBC 83 /hpf (0 - 3); Urine pH 8.5 (5.0-8.0)
[2023-05-23 07:59] LABS: Alanine Aminotransferase 20 U/L (7-40); Albumin 4.2 g/dL (3.2-4.8); Alkaline Phosphatase 124 U/L (46-116); Anion Gap 8 (5-15); Aspartate Aminotransferase 26 U/L (13-40); BUN/Creatinine Ratio 4.8 (10.0-20.0); Bilirubin, Total 0.3 mg/dL (0.2-1.0); Blood Urea Nitrogen 31 mg/dL (9-23); Calcium 10.3 mg/dL (8.5-10.1); Carbon Dioxide 30 mmol/L (20-30); Chloride 100 mmol/L (98-107); Cholesterol 128 mg/dL (< 200); Glucose 108 mg/dL (74-106); HDL Cholesterol 41 mg/dL (40-59); LDL Cholesterol 76 mg/dL (< 100); Potassium 5.1 mmol/L (3.5-5.1); Sodium 138 mmol/L (136-145); Triglycerides 69 mg/dL (< 150)
[2023-05-23 08:01] LABS: Free T4 (Free Thyroxine) 0.81 ng/dL (0.89-1.76)
[2023-05-23 08:02] LABS: Folate (Folic Acid) > 24.00 ng/mL (>5.38)
[2023-05-23 11:38] LABS: Uric Acid 3.7 mg/dL (3.7-9.2)
== END | disposition home or self-care (01) ==
LOC: LAB 06:56
PROVIDERS: ATTEND Internal Medicine
DX: E61.2 Magnesium deficiency (principal); E79.0 Hyperuricemia without signs of inflammatory arthritis and tophaceous disease; R82.998 Other abnormal findings in urine; E55.9 Vitamin D deficiency, unspecified; D51.9 Vitamin B12 deficiency anemia, unspecified; R94.6 Abnormal results of thyroid function studies; R82.79 Other abnormal findings on microbiological examination of urine; R78.89 Finding of other specified substances, not normally found in blood; E78.49 Other hyperlipidemia; R68.89 Other general symptoms and signs; R73.09 Other abnormal glucose
CPT/HCPCS: 36415; 80053; 80061; 81001; 82306; 82607; 82746; 83036; 84439; 84443; 84550; 85025; 87086

== ENCOUNTER → 2023-07-17 | Outpatient (CLI) | payer OTHER ==
[~2023-07-17] VITALS: Ht 170.2 cm; Wt 81.6 kg
[~2023-07-17] MED LIST changes: +ADENOSINE 69 MG in GIVE UN-DILUTED 0 ML IV ONE; +ADENOSINE 90 MG/30 ML INJ IV ONE
== END | disposition home or self-care (01) ==
LOC: Rad HDHVI 07:57
PROVIDERS: ATTEND Internal Medicine Cardiovascular Disease
DX: I13.2 Hypertensive heart and chronic kidney disease with heart failure and with stage 5 chronic kidney disease, or end stage renal disease (principal); E11.22 Type 2 diabetes mellitus with diabetic chronic kidney disease; I50.42 Chronic combined systolic (congestive) and diastolic (congestive) heart failure; N18.6 End stage renal disease; R94.31 Abnormal electrocardiogram [ECG] [EKG]; R06.02 Shortness of breath; E11.65 Type 2 diabetes mellitus with hyperglycemia; E78.5 Hyperlipidemia, unspecified; Z99.2 Dependence on renal dialysis
CPT/HCPCS: 78452; 93005; 96374; 96375; A9500; J0153

== ENCOUNTER → 2023-09-05 | Outpatient (CLI) | payer OTHER ==
[~2023-09-05] MED LIST changes: -ADENOSINE 69 MG in GIVE UN-DILUTED 0 ML IV ONE; -ADENOSINE 90 MG/30 ML INJ IV ONE
[2023-09-05 08:22] LABS: Urine Bacteria FEW /hpf (None Seen); Urine Blood 1+ /uL (Negative); Urine Clarity Turbid (Clear); Urine Color Yellow (Yellow); Urine Hyaline Cast FEW /lpf (0 - 2); Urine Mucus FEW (None Seen); Urine Protein, UAD 3+ (Negative); Urine Specific Gravity 1.019 (1.001-1.035); Urine Sperm PRESENT /hpf (None Seen); Urine Urobilinogen Normal (Negative); Urine WBC 245 /hpf (0 - 3); Urine pH 6.5 (5.0-9.0)
[2023-09-05 08:38] LABS: INR 1.13 (0.9-1.15); Prothrombin Time 11.9 sec (9.3-11.8)
[2023-09-05 08:58] LABS: Alanine Aminotransferase 20 U/L (7-40); Albumin 4.4 g/dL (3.2-4.8); Alkaline Phosphatase 151 U/L (46-116); Anion Gap 7 (5-15); Aspartate Aminotransferase 14 U/L (13-40); BUN/Creatinine Ratio 5.8 (10.0-20.0); Blood Urea Nitrogen 33 mg/dL (9-23); Calcium 10.1 mg/dL (8.5-10.1); Carbon Dioxide 30 mmol/L (20-30); Chloride 102 mmol/L (98-107); Glucose 118 mg/dL (74-106); LDL Cholesterol 50 mg/dL (< 100); Magnesium 2.1 mg/dL (1.6-2.6); Potassium 4.4 mmol/L (3.5-5.1); Sodium 139 mmol/L (136-145); Triglycerides 40 mg/dL (< 150)
[2023-09-05 08:59] LABS: Bilirubin, Total 0.6 mg/dL (0.2-1.0); Cholesterol 107 mg/dL (< 200); HDL Cholesterol 50 mg/dL (40-59); Phosphorus 4.1 mg/dL (2.4-5.1); Total Protein 7.3 g/dL (5.7-8.2)
[2023-09-05 09:34] LABS: Folate (Folic Acid) > 48.00 ng/mL (>5.38)
[2023-09-05 11:00] LABS: Uric Acid 3.4 mg/dL (3.7-9.2)
[2023-09-06 08:06] LABS: PSA Free 1.75 ng/mL; Prostate Specific Antigen 2.8 ng/mL (0.0-4.0)
== END | disposition home or self-care (01) ==
LOC: LAB 07:49
PROVIDERS: ATTEND Internal Medicine
DX: E03.9 Hypothyroidism, unspecified (principal); I50.9 Heart failure, unspecified; Z68.28 Body mass index [BMI] 28.0-28.9, adult; Z12.5 Encounter for screening for malignant neoplasm of prostate; Z79.899 Other long term (current) drug therapy
CPT/HCPCS: 36415; 80053; 80061; 81001; 82306; 82607; 82746; 83036; 83735; 84100; 84154; 84443; 84550; 85610; 87086; 87088; 87186

== ENCOUNTER → 2023-12-19 | Outpatient (CLI) | payer OTHER | END | disposition home or self-care (01) | LOC: LAB 12:20 | PROVIDERS: ATTEND Dermatology | DX: D48.5 Neoplasm of uncertain behavior of skin (principal) ==

== ENCOUNTER → 2024-01-30 | Outpatient (CLI) | payer OTHER | END | disposition home or self-care (01) | LOC: LAB 06:27 | PROVIDERS: ATTEND Internal Medicine | DX: E03.9 Hypothyroidism, unspecified (principal); D51.9 Vitamin B12 deficiency anemia, unspecified; R73.09 Other abnormal glucose; R94.6 Abnormal results of thyroid function studies; E55.9 Vitamin D deficiency, unspecified; E79.0 Hyperuricemia without signs of inflammatory arthritis and tophaceous disease; E61.2 Magnesium deficiency; R82.90 Unspecified abnormal findings in urine | CPT/HCPCS: 82306 ==

== ENCOUNTER → 2024-03-30 | Outpatient (CLI) | payer OTHER ==
[2024-03-30 08:18] LABS: Basophils # (auto) 0.1 10 ^3/uL (0-0.2); Eosinophils # (auto) 0.3 10 ^3/uL (0-0.8); Lymphocytes # (auto) 1.6 10 ^3/uL (0.4-5.4); Red Blood Cells 3.76 10^6/uL (4.5-5.90); Red Cell Distribution Width 13.6 % (11.8-14.3)
[2024-03-30 08:21] LABS: Eosinophils % (auto) 3.6 % (0.0-7.0); Hematocrit 38.1 % (41.0-53.0); Hemoglobin 13.1 g/dL (13.5-17.5); Lymphocytes % (auto) 18.6 % (10.0-50.0); Mean Corpuscular Hemoglobin 34.8 pg (28.0-32.0); Mean Corpuscular Hgb Conc. 34.4 g/dL (32.0-36.0); Mean Corpuscular Volume 101.4 fL (80.0-100.0); Neutrophils # (auto) 5.5 10 ^3/uL (1.6-8.6); Neutrophils % (auto) 64.8 % (37.0-80.0); Platelet Count (auto) 204 10^3/uL (140-450); White Blood Cell 8.5 10^3/uL (4.4-10.8)
[2024-03-30 08:24] LABS: Alanine Aminotransferase 30 U/L (7-40); Anion Gap 12 (5-15); Aspartate Aminotransferase 21 U/L (13-40); BUN/Creatinine Ratio 4.4 (10.0-20.0); Carbon Dioxide 29 mmol/L (20-31); Cholesterol 145 mg/dL (< 200); LDL Cholesterol 60 mg/dL (< 100); Triglycerides 129 mg/dL (< 150)
[2024-03-30 08:25] LABS: Total Protein 7.9 g/dL (5.7-8.2)
[2024-03-30 09:21] LABS: Alkaline Phosphatase 184 U/L (46-116); Blood Urea Nitrogen 49 mg/dL (9-23); Calcium 10.9 mg/dL (8.7-10.4); Chloride 94 mmol/L (98-107); Glucose 126 mg/dL (74-106); Potassium 5.2 mmol/L (3.5-5.1); Sodium 135 mmol/L (136-145)
[2024-03-30 09:22] LABS: Albumin 4.9 g/dL (3.2-4.8); Bilirubin, Total 0.3 mg/dL (0.2-1.0); HDL Cholesterol 64 mg/dL (40-59)
== END | disposition home or self-care (01) ==
LOC: LAB 07:14
PROVIDERS: ATTEND Internal Medicine
DX: E61.2 Magnesium deficiency (principal); E79.0 Hyperuricemia without signs of inflammatory arthritis and tophaceous disease; R73.09 Other abnormal glucose; R82.90 Unspecified abnormal findings in urine
CPT/HCPCS: 36415; 80053; 80061; 82607; 84443; 85025

== ENCOUNTER 2024-04-07 17:02 | Emergency (ER) | payer OTHER ==
[~2024-04-07] VITALS: Ht 170.2 cm; Wt 81.0 kg
[2024-04-07 17:13] VITALS: BP 114/70; PULSE 97; RESP 16; O2SAT 99
--- NOTE | 2024-04-07 18:00 | ED.PDOC ---
Back pain HPI HPI Comments 63y M who presents to the ED for chief complaint of R and neck pain since fall 2 weeks prior. Pt states during fall, he got up and lost balance and fell into his night stand and states he landed on his R side and has been having pain since. Pt states his pain is 10/10, constant, sharp in nature, with associated exacerbating factor of any movement and no relieving factors. Pt states he came to [facility] and was given pain meds and told to follow up with PCP. Pt states he had trouble getting x-ray sent to PCP office and came back to the ED for evaluation. Pt states he has pain with coughing or moving and came to the ED. Pt otherwise denies any other symptoms at this time. Chief Complaint: Rib Pain Time Seen by MD: 17:56 Primary Care Provider: Barb Reviewed Notes: Nurses Notes Allergies: Coded Allergies: NO KNOWN ALLERGIES (Unverified , 03/27/19) Home Meds Active Scripts Cephalexin Monohydrate (Cephalexin) 500 Mg Cap, 1 CAP PO TID for 5 Days, #15 CAP Prov:EDI HAGER MD 05/14/23 Reported Medications B-Complex W/ C & Folic Acid (Kim-Lyric) Tab, 1 TAB PO DAILY, TAB 10/28/19 Cyanocobalamin (Vitamin B-12) Unknown Strength Tab, PO DAILY, TAB 10/28/19 Hydrocodone-Acetaminophen (Hydrocodone/Acetaminophen 10-325 mg) 1 Tab Tab, 1 TAB PO BIDP PRN for SEVERE PAIN (7-10 PAIN SCALE), TAB 10/28/19 Aspirin (Asa) 81 Mg Ch, 81 MG PO DAILY, TAB.CHEW 10/28/19 Carvedilol (Carvedilol) 25 Mg Tab, 12.5 MG PO BID 10/28/19 Levothyroxine Sodium (Levothyroxine Sodium) 125 Mcg Tab, 1 TAB PO DAILY 10/28/19 Allopurinol (Allopurinol) 300 Mg Tab, 1 TAB PO DAILY 10/28/19 Sevelamer Carbonate (Renvela) 800 Mg Tab, 2400 MG PO TID, TAB 10/28/19 Furosemide (Furosemide) 40 Mg Tab, 40 MG PO BID for diuretic MDD 80 10/28/19 Information Source: Patient Mode of Arrival: Ambulatory Brought in by: self Past Medical History PAST MEDICAL HISTORY: CHF, ESRD, Gout, HTN, Liver, Thyroid Surgical History: Denies all surgeries Family History Family History: Family hx of DM Social History Smoker: Quit Greater Than 1 Year, Cigarettes Alcohol: Occasionally Drugs: Denies Drug Use Lives In: Home Constitutional: denies: chills, diaphoresis, fatigue, fever, malaise, sweats, weakness, others EENTM: denies: blurred vision, double vision, ear bleeding, ear discharge, ear drainage, ear pain, ear ringing, eye pain, eye redness, hearing loss, mouth pain, mouth swelling, nasal discharge, nose bleeding, nose congestion, nose pain, photophobia, tearing, throat pain, throat swelling, voice changes, others Respiratory: denies: cough, hemoptysis, orthopnea, SOB at rest, shortness of breath, SOB with excertion, stridor, wheezing, others Cardiovascular: denies: chest pain, dizzy spells, diaphoresis, Dyspnea on exertion, edema, irregular heart beat, left arm pain, lightheadedness, palpitations, PND, syncope, others Gastrointestinal: denies: abdomen distended, abdominal pain, blood streaked bowels, constipated, diarrhea, dysphagia, difficulty swallowing, hematemesis, melena, nausea, poor appetite, poor fluid intake, rectal bleeding, rectal pain, vomiting, others Genitourinary: denies: burning, dysuria, flank pain, frequency, hematuria, incontinence, penile discharge, penile sore, pain, testicle pain, testicle swelling, urgency, others Neurological: denies: dizziness, fainting, headache, left sided numbness, left sided weakness, numbness, paresthesia, pre-existing deficit, right sided numbness, right sided weakness, seizure, speech problems, tingling, tremors, weakness, others Musculoskeletal: reports: joint pain, neck pain; denies: back pain, gout, joint swelling, muscle pain, muscle stiffness, others Integumetry: denies: bruises, change in color, change in hair/nails, dryness, laceration, lesions, lumps, rash, wounds, others Allergic/Immunocompromised: denies: Difficulty Healing, Frequent Infections, Hives, Itching, others Hematologic/Lymphatic: denies: anemia, blood clots, easy bleeding, easy bruising, swollen glands, others Endocrine: denies: excessive hunger, excessive sweating, excessive thirst, excessive urination, flushing, intolerance to cold, intolerance to heat, unexplained weight gain, unexplained weight loss, others Psychiatric: denies: anxiety, bipolar disorder, depression, hopeless, panic disorder, schizophrenia, sleepless, suicidal, others All Other Systems: Reviewed and Negative Physical Exam General Appearance: Mild Distress, Normal HEENT: Normal ENT Inspection, Pharynx Normal, TMs Normal Neck: Full Range of Motion, Non-Tender, Normal, Normal Inspection Respiratory: No Respiratory Distress, Normal Breath Sounds, Other (tender right chest wall, no deformity) Cardiovascular: No Edema, No JVD, No Murmur, No Gallop, Normal Peripheral Pulses, Regular Rate/Rhythm Breast Exam: Deferred Gastrointestinal: No Organomegaly, Non Tender, No Pulsatile Mass, Normal Bowel Sounds, Soft Genitalia: Deferred Pelvic: Deferred Rectal: Deferred Extremities: No pedal edema, Other (right upper arm AV shunt) Musculoskeletal : Apperance: Normal 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 Was a procedure done?: No Back Pain Differential Dx Differential Diagnosis: Appendicitis, Fracture, Musculoskeletal Pain Other Differential Diagnosis rib fracture, contusion, pneumothorax. X-Ray, Labs, Meds, VS Vital Signs Date Time Temp Pulse Resp B/P (MAP) Pulse Ox O2 Delivery O2 Flow Rate FiO2 04/07/24 17:13 97.9 97 16 114/70 (85) [address] [address] Ph: [phone] DIAGNOSTIC IMAGING Diagnostic Imaging Report : [id number] Signed PATIENT: MAKAYLA DE JESUS ACCT: [id number] UNIT: [id number] : 1960 LOC: XY ROOM / BED: / AGE / SEX: 63 / M ADM STATUS: REG CLI SERVICE 1325 ORDERING PHYSICIAN: HELEN ALLEN MD PROCEDURE(s): RRIBS - R RIB XRAY REASON: History of falling ORDER NUMBER(s): [id number], ACCESSION NUMBER(s): [id number] CHEST RADIOGRAPH Indication: History of falling Technique: Single frontal view of the chest with 4 views of the right ribs available for evaluation. Comparison: None FINDINGS: Lines and Tubes: None Lungs: No focal consolidation. Scattered calcifications throughout the bilateral lungs which represent pleural calcifications. Pleura: No effusion. No pneumothorax. Cardiomediastinal contours: Unremarkable Bones: Acute fractures of right anterior lateral ribs 7 and 8 is suggested. IMPRESSION: No acute cardiopulmonary disease. Calcified pleural plaques are noted. There is suggested acute fracture of right anterolateral ribs 8 and 7. ATED BY: LUZ MARIA MEDINA DO DICTATED DATE/TIME: 04/03/24 1353 SIGNED BY: LUZ MARIA MEDINA DO SIGNED DATE/TIME: 04/03/24 1353 CC: Time of 1ST Reevaluation: 18:30 Reevaluation 1ST: Unchanged Time of 2ND Reevaluation: 19:00 Reevaluation 2ND: Unchanged Patient Education/Counseling: Diagnosis, Treatment Family Education/Counseling: No Family Present Departure 1 Departure Time of Disposition: 19:00 Impression: Primary Impression: Right rib fracture Additional Impression: ESRD on dialysis Disposition: 01 HOME / SELF CARE / HOMELESS Condition: Stable Discharged With: Self Critical Care Note Critical Care Time?: No Stability Stability form required: No Heart Score Heart Score: Heart Score Response (Comments) Value History N/A 0 EKG N/A 0 Age N/A 0 Risk Factors N/A 0 Troponin N/A 0 Total 0 I personally scribed for VASYL BEE MD ([email or web address]) on 04/07/24 at 18:00. Electronically submitted by Jay Babcock ([email or web address]). VASYL BEE MD Apr 07, 2024 18:00
== END 2024-04-07 21:47 | disposition home or self-care (01) ==
LOC: ER 17:02
DX: S22.31XA Fracture of one rib, right side, initial encounter for closed fracture (principal); I13.2 Hypertensive heart and chronic kidney disease with heart failure and with stage 5 chronic kidney disease, or end stage renal disease; N18.6 End stage renal disease; I50.9 Heart failure, unspecified; Z79.82 Long term (current) use of aspirin; Z79.899 Other long term (current) drug therapy; Z99.2 Dependence on renal dialysis; W01.0XXA Fall on same level from slipping, tripping and stumbling without subsequent striking against object, initial encounter; Y93.89 Activity, other specified; Y92.89 Other specified places as the place of occurrence of the external cause; Y99.8 Other external cause status

== ENCOUNTER → 2024-07-07 | Outpatient (CLI) | payer OTHER | END | disposition home or self-care (01) | LOC: LAB 06:11 | PROVIDERS: ATTEND Internal Medicine | DX: E11.9 Type 2 diabetes mellitus without complications (principal) | CPT/HCPCS: 36415; 83036 ==

== ENCOUNTER 2024-09-02 06:53 | Day surgery (SDC) | payer OTHER ==
[2024-08-31 10:09] LABS: Basophils # (auto) 0.1 10 ^3/uL (0-0.2); Basophils % (auto) 0.9 % (0.0-2.0); Eosinophils # (auto) 0.2 10 ^3/uL (0-0.8); Eosinophils % (auto) 3.4 % (0.0-7.0); Hematocrit 36.2 % (41.0-53.0); Hemoglobin 12.4 g/dL (13.5-17.5); Lymphocytes # (auto) 1.1 10 ^3/uL (0.4-5.4); Lymphocytes % (auto) 15.8 % (10.0-50.0); Mean Corpuscular Hemoglobin 33.8 pg (28.0-32.0); Mean Corpuscular Hgb Conc. 34.2 g/dL (32.0-36.0); Mean Corpuscular Volume 98.9 fL (80.0-100.0); Monocytes # (auto) 0.6 10 ^3/uL (0-1.3); Monocytes % (auto) 7.9 % (0.0-12.0); Neutrophils # (auto) 5.2 10 ^3/uL (1.6-8.6); Platelet Count (auto) 154 10^3/uL (140-450); Red Blood Cells 3.66 10^6/uL (4.5-5.90); Red Cell Distribution Width 13.4 % (11.8-14.3); White Blood Cell 7.2 10^3/uL (4.4-10.8)
[2024-08-31 10:27] LABS: INR 0.98 (0.9-1.15); Partial Thromboplastin Time 28.1 SEC (24.5-34.5); Prothrombin Time 10.4 sec (9.3-11.8)
[2024-08-31 10:56] LABS: Potassium 4.8 mmol/L (3.5-5.1)
[2024-08-31 10:57] LABS: Anion Gap 13 (5-15); Carbon Dioxide 27 mmol/L (20-31)
[2024-08-31 10:58] LABS: Calcium 8.4 mg/dL (8.7-10.4); Chloride 93 mmol/L (98-107); Sodium 133 mmol/L (136-145)
[2024-08-31 11:02] LABS: BUN/Creatinine Ratio 4.7 (10.0-20.0)
[2024-08-31 11:03] LABS: Blood Urea Nitrogen 59 mg/dL (9-23); Glucose 286 mg/dL (74-106)
[2024-09-02] VITALS (10 sets, daily range): BP systolic 104–129; BP diastolic 56–75; PULSE 58–71; RESP 13–18; TEMP 97.8; O2SAT 94–100
[~2024-09-02] VITALS: Ht 170.2 cm; Wt 84.8 kg
[~2024-09-02 06:53] MED LIST changes: +ALLO100T PO; -ALLO300T2 PO; -ASPI81CH43 PO; -CEPH500C PO; -CYAN500T25 PO; -FURO40TA4 PO; -HYDR-4072 PO
[2024-09-02] MEDS: IODIXANOL 320MG/ML 100ML BTL IV ONE ×4 (10:24→12:08)
[2024-09-02] MEDS: ANGIOMAX 250 MG VIAL IV ONE (10:32)
[2024-09-02] MEDS: fentaNYL CITRATE 100 MCG/2 ML VL ONE (10:32)
[2024-09-02] MEDS: VERAPAMIL 2.5MG/ML INJ 2ML VIAL IV ONE (10:32)
[2024-09-02] MEDS: HEPARIN SODIUM (PORCINE) 5000 UNITS/ML 1ML VIAL ONE (10:32)
[2024-09-02] MEDS: LIDOCAINE 2%HCL (LOCAL ANESTH.) INJ 20ML MDV ONE (10:33)
[2024-09-02] MEDS: SODIUM CHL 0.9% 50 ML ONE (10:33)
[2024-09-02] MEDS: MIDAZOLAM HCL 2MG/2ML 2ml VIAL (1mg/ml) ONE (10:33)
[2024-09-02] MEDS: CLOPIDOGREL BISULFATE 75 MG TAB ONE (11:58)
[2024-09-02] MEDS: ASPirin 325 MG TAB ONE (11:58)
--- NOTE | 2024-09-02 12:32 | DVHOP2 ---
Operative Report - 2 Report Details Date: 09/02/24 Preop Diagnosis: CAD Postop Diagnosis: CAD. Lad/diagonal stenosis Surgeon: Shereen Alexis MD Anesthesiologist: Conscious sedation Anesthesia: Mac, Local Consent: The patient was informed of the risks and benefits of the procedure. These include but are not limited to complications of anesthesia, postoperative infection, incomplete relief of symptoms, recurrence of symptoms, damage to blood vessels, nerves and tendons, deep venous thrombosis, pulmonary embolism and possible need for repeat surgery in the future. Complications: No complications Findings: LAD/diagonal stenosis. Decreased left ventricular ejection fraction. Elevated left ventricular end-diastolic pressure at rest. Indications for Surgery: Chest pain. Abnormal stress test Name of Procedure Performed Left heart catheterization bilateral cine coronary angiography. Left ventriculography. Fractional flow reserve evaluation of the circumflex coronary artery. PTCA and stenting of left anterior descending coronary artery and diagonal artery. Procedure Details Procedure Details: Prior local anesthesia with 2% lidocaine to the right groin and full informed consent obtained the patient was prepped and draped in usual fashion followed by placement of a six [place] sheath into the right femoral artery through which six [place]arian Hazel catheters were used to cannulate both right and left coronary ostia and a six [place] pigtail catheter was used for ventriculography. Angioplasty was performed with a 3.5 XB LAD. Guiding catheter. Stenting was performed as noted below. Hemodynamics aortic blood pressure was 130/70. End-diastolic pressure was 15. There was no gradient across the aortic valve on pullback. Coronary anatomy: The RCA is a large dominant vessel it is normal in its proximal mid and distal segments. The PDA and posterolateral branches are normal. Left main is large and normal. Left anterior descending is a large vessel it has a proximal to mid 85% stenosis. This is a bifurcating lesion. The diagonal is a moderate to large vessel it has a 99% subtotal stenosis. The circumflex is a large vessel with a proximal to mid 50-60% stenosis. Fractional flow reserve evaluation revealed an value of point eight eight consistent with noncritical disease. Ventriculography in the [place] projection reveals an ejection fraction of 35% with global hypokinesis Angioplasty was performed for which an XB 3.5 lad catheter was then utilized. We directly placed a Specter wire into the left anterior descending coronary artery and a whisper wire into the diagonal. We then dilated the diagonal with a 2.25 balloon. We stented with a 2.25 by 12 mm Medtronic elaine drug-eluting stent. After pre dilating the left anterior descending coronary artery with a 2.5 x 15 balloon we placed a 2.5 by 16 mm elaine Medtronic drug-eluting stent. A kissing balloon technique was utilized to dilate both stents simultaneously. With a 2.5 by 8 mm balloon. We post dilated the left anterior descending with the same stent balloon at 18-20 atmospheres. Kissing balloon technique was performed as mentioned. Patient tolerated the procedure well there were no complications there was excellent antegrade flow with notable improvement in flow as mentioned. Impression: Elevated left ventricular end-diastolic pressure at rest with decreased left ventricular ejection fraction. Successful PTCA and stenting of the LAD diagonal bifurcation. Recommendations dual antiplatelet therapy with risk factor modification to continue. Condition Good Disposition Still a Patient Date of Service: Sep 02, 2024 Billing Provider: SHEREEN ALEXIS Sr., MD Cardiology Common Codes: 40623-[id number] INP/OBS CARE (High) Cardiology Procedure Codes: 63707 -PTCA W/STENT PLACEMENT, 90634-KJAN ADD CORONARY BRANCH SHEREEN ALEXIS Sr., MD Sep 02, 2024 12:32
[2024-09-02] MEDS ORDERED: CARV6.2551 PO (12:53)
[2024-09-02] MEDS ORDERED: ASPI1TAB19 PO (14:15)
[2024-09-02] MEDS ORDERED: CLOP75TA28 PO (14:15)
--- NOTE | 2024-09-08 07:48 | ECG ---
[facility] Test Date: 2024-09-02 Test Time: 07:50:46 Pat Name: MAKAYLA DE JESUS Department: Room: Gender: M Contact Officer: RIGOBERTO : 1960 Requested By: SHEREEN ALEXIS Order Number: [id number] Reading MD: Shereen Alexis Measurements Intervals [place] Rate: 65 P: 0 VA: 146 QRS: -69 QRSD: 116 T: -9 QT: 486 QTc: 505 Interpretive Statements Normal sinus rhythm Left anterior fascicular block Prolonged QT Electronically Signed On 09-11-2024 9:30:04 PDT by Shereen Alexis Please click the below link to view image of tracing.
== END 2024-09-02 16:22 | disposition home or self-care (01) ==
LOC: CATH 06:53
PROVIDERS: ATTEND Internal Medicine
DX: I25.10 Atherosclerotic heart disease of native coronary artery without angina pectoris (principal); I50.9 Heart failure, unspecified; Z79.82 Long term (current) use of aspirin; Z79.890 Hormone replacement therapy; Z79.01 Long term (current) use of anticoagulants; Z87.891 Personal history of nicotine dependence; Z83.3 Family history of diabetes mellitus
CPT/HCPCS: 0523T; 36415; 80048; 85025; 85610; 85730; 93458; C1725; C1769; C1874; C1887; C1894; C9600; C9601; J0583; J1644; J2250; J3010; Q9967; 93005; 99152; 99153

== ENCOUNTER 2024-10-06 06:29 | Outpatient (CLI) | payer OTHER ==
[~2024-10-06 06:29] MED LIST changes: +ASPI1TAB19 PO; -CARV25TA55 PO; +CARV6.2551 PO; +CLOP75TA28 PO
[2024-10-06 07:07] LABS: Alanine Aminotransferase 25 U/L (7-40); Albumin 4.7 g/dL (3.2-4.8); Anion Gap 11 (5-15); BUN/Creatinine Ratio 4.4 (10.0-20.0); Bilirubin, Total 0.5 mg/dL (0.2-1.0); Carbon Dioxide 30 mmol/L (20-31); Cholesterol 166 mg/dL (< 200); HDL Cholesterol 46 mg/dL (40-59); Potassium 4.4 mmol/L (3.5-5.1); Total Protein 7.6 g/dL (5.7-8.2); Triglycerides 97 mg/dL (< 150)
[2024-10-06 07:08] LABS: Hematocrit 36.8 % (41.0-53.0); Hemoglobin 12.8 g/dL (13.5-17.5); Mean Corpuscular Hemoglobin 34.0 pg (28.0-32.0); Mean Corpuscular Volume 97.8 fL (80.0-100.0); Nucleated Red Blood Cells % 0.0 %
[2024-10-06 08:09] LABS: Blood Urea Nitrogen 47 mg/dL (9-23); Chloride 94 mmol/L (98-107); Glucose 175 mg/dL (74-106); Sodium 135 mmol/L (136-145)
[2024-10-06 08:11] LABS: Alkaline Phosphatase 214 U/L (46-116); Calcium 8.3 mg/dL (8.7-10.4)
[2024-10-06 08:36] LABS: Uric Acid 4.7 mg/dL (3.7-9.2)
== END 2024-10-06 17:00 | disposition home or self-care (01) ==
LOC: LAB 06:29
PROVIDERS: ATTEND Internal Medicine
DX: E78.49 Other hyperlipidemia (principal); E61.2 Magnesium deficiency; E79.0 Hyperuricemia without signs of inflammatory arthritis and tophaceous disease; R68.89 Other general symptoms and signs; R73.09 Other abnormal glucose; R94.6 Abnormal results of thyroid function studies; R82.998 Other abnormal findings in urine; E55.9 Vitamin D deficiency, unspecified; R82.90 Unspecified abnormal findings in urine; R82.79 Other abnormal findings on microbiological examination of urine; D61.9 Aplastic anemia, unspecified
CPT/HCPCS: 36415; 80053; 80061; 82306; 82607; 82746; 83036; 84443; 84550; 85025

== ENCOUNTER → 2025-02-11 | Outpatient (CLI) | payer OTHER | END | disposition home or self-care (01) | LOC: LAB 07:53 | PROVIDERS: ATTEND Internal Medicine | DX: I13.10 Hypertensive heart and chronic kidney disease without heart failure, with stage 1 through stage 4 chronic kidney disease, or unspecified chronic kidney disease (principal); N18.9 Chronic kidney disease, unspecified; E11.22 Type 2 diabetes mellitus with diabetic chronic kidney disease | CPT/HCPCS: 36415; 83036 ==